=== PATIENT | male | born 1980 | race Caucasian/White ===

== ENCOUNTER 2016-04-18 16:16 | Emergency (ER) | payer MEDICAID, SELFPAY ==
[~2016-04-18 16:16] MED LIST: Lidocaine 1% 20 ML MDV INFILT ONE
[2016-04-18 17:44] VITALS: BP 105/61
[2016-04-18] MEDS ORDERED: cefTRIAXone 1,000 MG VIAL IM ONE (18:16)
[2016-04-18] MEDS ORDERED: cefTRIAXone 1 GM Vial IM ONE (18:26)
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
== END 2016-04-18 18:40 | disposition home or self-care (01) ==
LOC: FB.ED 16:16
DX: S51.812A Laceration without foreign body of left forearm, initial encounter (principal); W45.8XXA Other foreign body or object entering through skin, initial encounter; Z88.6 Allergy status to analgesic agent; Z88.1 Allergy status to other antibiotic agents; Z88.8 Allergy status to other drugs, medicaments and biological substances; I12.0 Hypertensive chronic kidney disease with stage 5 chronic kidney disease or end stage renal disease; N18.6 End stage renal disease; F32.9 Major depressive disorder, single episode, unspecified; F10.10 Alcohol abuse, uncomplicated
CPT/HCPCS: 12002; 96372; 99283; A4217; J0696; 12001

== ENCOUNTER 2016-08-01 12:50 | Emergency (ER) | payer MEDICAID ==
[2016-08-01] MEDS ORDERED: methylPREDNISolone Sodium Succinate 125 MG/2 ML SDV IVPUSH ONE (13:12)
[2016-08-01] MEDS ORDERED: diphenhydrAMINE 50 MG/ML SDV IVPUSH ONE (13:13)
[2016-08-01] MEDS ORDERED: Famotidine 20 MG/2 ML SDV IVPUSH ONE (13:13)
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
[2016-08-01 14:31] VITALS: BP 124/72
== END 2016-08-01 14:15 | disposition home or self-care (01) ==
LOC: FB.ED 12:50
DX: T78.40XA Allergy, unspecified, initial encounter (principal)
CPT/HCPCS: 96374; 96375; 99282; J1200; J2930; S0028

== ENCOUNTER 2018-11-07 08:29 | Emergency (ER) | payer MEDICAID ==
[2018-11-07] MEDS ORDERED: Ketorolac 60 MG/2 ML SDV IM ONE (08:52)
[2018-11-07 08:55] VITALS: BP 149/97; PULSE 103
--- NOTE | 2018-11-07 08:57 | EDM.PDOC ---
ED HPI GENERAL MEDICAL PROBLEM - General Chief Complaint: Back Pain or Injury Stated Complaint: BACK PAIN Time Seen by Provider: 11/07/18 08:29 Source of Information: Reports: Patient History Limitations: Reports: No Limitations - History of Present Illness INITIAL COMMENTS - FREE TEXT/NARRATIVE: 38 y.o.w.m came to the ed one day after he injured his lower back while changing the oil on his car. He denied stool or urine incontinence, denied pain is shooting down his legs. No N/V/D no CP no SOB or any other acute med issues. BP 149/97 Pulse ox 97% on RA RR 18 Pulse 103 Temp 36.9 Onset Date: 11/06/18 Onset Time: 17:00 Duration: Hour(s): Location: Reports: Back Quality: Reports: Ache, Dull, Same as Previous Episode Severity: Moderate Improves with: Reports: Medication, Rest Worsens with: Reports: Movement Context: Reports: Trauma (fell on his back yesterday while changing the oil on his car) Associated Symptoms: Reports: No Other Symptoms - Related Data Allergies Allergy/AdvReac Type Severity Reaction Status Date / Time cat dander Allergy Cannot Verified 11/07/18 08:52 Remember Home Meds: Home Meds Disulfiram 500 mg PO DAILY #30 tablet 07/02/15 [Rx] buPROPion HCl [Wellbutrin SR] 300 mg PO DAILY #60 tablet.er 07/02/15 [Rx] Acetaminophen/HYDROcodone [Pray 325-5 MG] 1 tab PO Q4H PRN #4 tab 11/07/18 [Rx] Cyclobenzaprine [Flexeril] 10 mg PO BID PRN 11/07/18 [History] Testosterone Cypionate 200 mg IM Q30D 11/07/18 [History] Past Medical History - Past Health History Medical/Surgical History: Denies Medical/Surgical History Cardiovascular History: Reports: Arrhythmia, Hypertension Respiratory History: Reports: Asthma Gastrointestinal History: Reports: Gastritis, GI Bleed Genitourinary History: Reports: Dialysis, Renal Disease Other Genitourinary History: On dialysis x 30 days- was in renal failure after drank antifreeze. Is off dialysis now. Musculoskeletal History: Reports: Fracture Other Musculoskeletal History: fx R hand Psychiatric History: Reports: Addiction, Depression, Psych Hospitalization(s) Other Psychiatric History: has been in ETOH tx x 7. Seeing counselor now for ETOH abuse & depression. Saw counselor last Th. Other Endocrine/Metabolic History: does not remember Other Hematologic History: unable3 Other Dermatologic History: unable to respond - Past Surgical History GI Surgical History: Reports: Colonoscopy Social & Family History - Family History Family Medical History: Unobtainable - Caffeine Use Caffeine Use: Reports: Soda - Living Situation & Occupation Living situation: Reports: Single, with Significant Other Occupation: Disabled ED ROS GENERAL - Review of Systems Review Of Systems: See Below Constitutional: Reports: No Symptoms HEENT: Reports: No Symptoms Respiratory: Reports: No Symptoms Cardiovascular: Reports: No Symptoms Endocrine: Reports: No Symptoms GI/Abdominal: Reports: No Symptoms : Reports: No Symptoms Musculoskeletal: Reports: Back Pain Skin: Reports: No Symptoms Neurological: Reports: No Symptoms Psychiatric: Reports: No Symptoms Hematologic/Lymphatic: Reports: No Symptoms Immunologic: Reports: No Symptoms ED EXAM,LOWER BACK PAIN/INJURY - Physical Exam Exam: See Below Exam Limited By: No Limitations General Appearance: Alert, WD/WN, Mild Distress, Moderate Distress Eye Exam: Bilateral Eye: Normal Inspection Ears: Normal External Exam Nose: Normal Inspection, Normal Mucosa Throat/Mouth: Normal Lips, Normal Teeth, Normal Voice, No Airway Compromise Head: Atraumatic, Normocephalic Neck: Normal Inspection, Supple, Non-Tender, Full Range of Motion Respiratory/Chest: No Respiratory Distress, Lungs Clear, Normal Breath Sounds Cardiovascular: Normal Peripheral Pulses, Regular Rate, Rhythm, No Edema, No Gallop GI/Abdominal: Normal Bowel Sounds, Soft, Non-Tender, No Organomegaly (Male) Exam: Deferred Rectal (Males) Exam: Deferred Back Exam: Normal Inspection, Full Range of Motion, Vertebral Tenderness Extremities: Normal Inspection, Normal Range of Motion Neurological: Alert, Normal Mood/Affect, Normal Dorsiflexion, CN II-XII Intact, Normal Gait, Oriented x 3 Psychiatric: Normal Affect, Normal Mood Skin Exam: Warm, Dry, Intact, Normal Color, No Rash Lymphatic: No Adenopathy Course - Vital Signs Text/Narrative:: 38 y.o.w.m came to the ed one day after he injured his lower back while changing the oil on his car. He denied stool or urine incontinence, denied pain is shooting down his legs. No N/V/D no CP no SOB or any other acute med issues. BP 149/97 Pulse ox 97% on RA RR 18 Pulse 103 Temp 36.9 PE: WNWD muscular 38 y.o.w.m with low back pain. Bilat straight leg rasing 20 degree. Imaging: Not indicated Impression: Low back sprain Tx: Toradol, ICE Reexam: Improved 20% Plan: D/C with instructions Last Recorded V/S: Last Vital Signs Temp 36.8 C 11/07/18 08:29 Pulse 103 H 11/07/18 08:29 Resp 18 11/07/18 08:29 BP 149/97 H 11/07/18 08:29 Pulse Ox 97 11/07/18 08:29 - Orders/Labs/Meds Orders: Active Orders 24 hr Category Date Time Status Cooling Warming Measures [RC] ASDIRECTED Care 11/07/18 08:53 Active Ice Bag [Ice Therapy] [OM.PC] Routine Oth 11/07/18 08:53 Ordered Meds: Medications Discontinued Medications Generic Name Dose Route Start Last Admin Trade Name Freq PRN Reason Stop Dose Admin Ketorolac Tromethamine 60 mg 11/07/18 08:52 11/07/18 09:00 Toradol IM 11/07/18 08:53 60 mg ONETIME ONE Administration Departure - Departure Time of Disposition: 09:36 Disposition: Home, Self-Care 01 Condition: Good Clinical Impression: Low back strain Qualifiers: Encounter type: initial encounter Qualified Code(s): S39.012A - Strain of muscle, fascia and tendon of lower back, initial encounter - Discharge Information Prescriptions: Acetaminophen/HYDROcodone [Pray 325-5 MG] 1 tab PO Q4H PRN #4 tab PRN Reason: for severe pain only Instructions: Chronic Back Pain, [id number] Referrals: Jamal Fulton MD [Primary Care Provider] - Forms: ED Department Discharge Additional Instructions: Please apply Ice to the lower back, Motrin with food for mod pain, Pray for severe pain only, please f/u, come back if your symptoms get worse acutely. - My Orders Last 24 Hours: My Active Orders 11/07/18 08:53 Cooling Warming Measures [RC] ASDIRECTED Ice Bag [Ice Therapy] [OM.PC] Routine - Assessment/Plan Last 24 Hours: My Active Orders 11/07/18 08:53 Cooling Warming Measures [RC] ASDIRECTED Ice Bag [Ice Therapy] [OM.PC] Routine
== END 2018-11-07 09:45 | disposition home or self-care (01) ==
LOC: FB.ED 08:29
DX: S39.012A Strain of muscle, fascia and tendon of lower back, initial encounter (principal); F32.9 Major depressive disorder, single episode, unspecified; I10 Essential (primary) hypertension; Z91.048 Other nonmedicinal substance allergy status; X58.XXXA Exposure to other specified factors, initial encounter
CPT/HCPCS: 96372; 99282; J1885

== ENCOUNTER 2020-03-20 15:41 | Emergency (ER) | payer MEDICAID ==
[2020-03-20] MEDS ORDERED: Sodium Chloride 0.9% 10 ML Syringe FLUSH PRN (15:58)
[2020-03-20] MEDS ORDERED: Ketorolac 30 MG/ML SDV IVPUSH STA (16:03)
[2020-03-20] MEDS ORDERED: Acetaminophen 500 MG Tab PO STA (16:03)
[2020-03-20] MEDS ORDERED: Ondansetron 4 MG/2 ML SDV IVPUSH STA (16:03)
[2020-03-20] MEDS ORDERED: Thiamine 100 MG in Sodium Chloride 0.9% 100 ML IV STA (16:04)
[2020-03-20] MEDS ORDERED: Sodium Chloride 0.9% 1,000 ML IV SCH (16:15)
[2020-03-20] MEDS ORDERED: cefTRIAXone 1 GM in Sodium Chloride 0.9% 50 ML IV STA (17:43)
[2020-03-20] MEDS ORDERED: Sulfamethoxazole/Trimethoprim 800-160 MG Tab PO STA (17:45)
[2020-03-20 17:46] VITALS: BP 122/63
--- NOTE | 2020-03-20 17:55 | EDM.PDOC ---
ED HPI GENERAL MEDICAL PROBLEM - General Chief Complaint: Lower Extremity Injury/Pain Time Seen by Provider: 03/20/20 15:45 Source of Information: Reports: Patient History Limitations: Reports: No Limitations - History of Present Illness INITIAL COMMENTS - FREE TEXT/NARRATIVE: Patient presented to the ED because fever, left leg pain, nausea but no vomiting. He drink alcohol regularly and shoots meth and take ecstasy. He denies any chest pain, dyspnea. Right Lower Leg Pain Score (Numeric/FACES): 10 - Related Data Allergies Allergy/AdvReac Type Severity Reaction Status Date / Time cat dander Allergy Mild Cannot Verified 03/20/20 16:18 Remember Home Meds: Home Meds Disulfiram 500 mg PO DAILY #30 tablet 07/02/15 [Rx] buPROPion HCL [Wellbutrin SR] 300 mg PO DAILY #60 tablet.er 07/02/15 [Rx] Acetaminophen/HYDROcodone [Hibbs 325-5 MG] 1 tab PO Q4H PRN #4 tab 11/07/18 [Rx] Cyclobenzaprine [Flexeril] 10 mg PO BID PRN 11/07/18 [History] Testosterone Cypionate 200 mg IM Q30D 11/07/18 [History] Sulfamethoxazole/Trimethoprim [Bactrim Ds Tablet] 1 each PO BID #20 tablet 03/20/20 [Rx] cephALEXin [Keflex] 500 mg PO Q8H #30 cap 03/20/20 [Rx] Past Medical History - Past Health History Medical/Surgical History: Denies Medical/Surgical History Cardiovascular History: Reports: Arrhythmia, Hypertension Other Cardiovascular History: Tachycardia Respiratory History: Reports: Asthma Gastrointestinal History: Reports: Gastritis, GI Bleed Genitourinary History: Reports: Dialysis, Renal Disease Other Genitourinary History: On dialysis x 30 days- was in renal failure after drank antifreeze. Is off dialysis now. Musculoskeletal History: Reports: Fracture Other Musculoskeletal History: fx R hand Psychiatric History: Reports: Addiction, Depression, Psych Hospitalization(s) Other Psychiatric History: has been in ETOH tx x 7. Seeing counselor now for ETOH abuse & depression. Saw counselor last Th. Other Endocrine/Metabolic History: does not remember Other Hematologic History: unable3 Other Dermatologic History: unable to respond - Infectious Disease History Infectious Disease History: Reports: Chicken Pox - Past Surgical History GI Surgical History: Reports: Colonoscopy Other GI Surgeries/Procedures: unable to respond Other Endocrine Surgeries/Procedures: unable to respond Social & Family History - Family History Family Medical History: No Pertinent Family History - Caffeine Use Caffeine Use: Reports: None - Recreational Drug Use Recreational Drug Use: Yes Drug Use in Last 12 Months: Yes Recreational Drug Type: Reports: Amphetamines (Speed) - Living Situation & Occupation Living situation: Reports: Single, with Significant Other Occupation: Disabled Review of Systems - Review of Systems Review Of Systems: See Below Constitutional: Reports: No Symptoms Eyes: Reports: No Symptoms Ears: Reports: No Symptoms Nose: Reports: No Symptoms Mouth/Throat: Reports: No Symptoms Respiratory: Reports: No Symptoms Cardiovascular: Reports: No Symptoms GI/Abdominal: Reports: No Symptoms Genitourinary: Reports: No Symptoms Musculoskeletal: Reports: No Symptoms Skin: Reports: Erythema Neurological: Reports: No Symptoms Psychiatric: Reports: No Symptoms ED EXAM, GENERAL - Physical Exam Exam: See Below Exam Limited By: No Limitations General Appearance: Alert, No Apparent Distress Nose: Normal Inspection, Normal Mucosa Throat/Mouth: Normal Inspection, Normal Lips Head: Atraumatic, Normocephalic Neck: Normal Inspection, Supple, Non-Tender, Full Range of Motion Respiratory/Chest: No Respiratory Distress, Lungs Clear, Normal Breath Sounds Cardiovascular: Normal Peripheral Pulses, No Edema, No Gallop, Tachycardia GI/Abdominal: Normal Bowel Sounds, Soft, Non-Tender, No Organomegaly Back Exam: Normal Inspection, Full Range of Motion Extremities: Normal Inspection, Normal Range of Motion, Non-Tender Neurological: Alert, Oriented, CN II-XII Intact Psychiatric: Normal Affect Skin Exam: Erythema Course - Vital Signs Text/Narrative:: Labs/EKG/CXR was discussed with patient and verbalized full understanding NS 1 L bolus Toradol 30 mg IV x1 Tylenol 1000 mg po x1 Zofran 4 mg IV Rocephin 1gm IV Bactrim DS 1 po x1 Last Recorded V/S: Last Vital Signs Temp 37.3 C 03/20/20 17:40 Pulse 109 H 03/20/20 17:40 Resp 22 H 03/20/20 17:40 BP 122/63 03/20/20 17:40 Pulse Ox 97 03/20/20 17:40 - Orders/Labs/Meds Orders: Active Orders 24 hr Category Date Time Status EKG Documentation Completion [RC] ASDIRECTED Care 03/20/20 16:01 Active Chest 1V Frontal [CR] Stat Exams 03/20/20 16:00 Taken CULTURE BLOOD [BC] Urgent Lab 03/20/20 15:50 Received CULTURE BLOOD [BC] Urgent Lab 03/20/20 16:00 Received LACTIC ACID [CHEM] Stat Lab 03/20/20 15:50 Received Sodium Chloride 0.9% [Normal Saline] 1,000 ml Med 03/20/20 16:15 Active IV ASDIRECTED Sodium Chloride 0.9% [Saline Flush] Med 03/20/20 15:58 Active 10 ml FLUSH ASDIRECTED PRN Blood Culture x2 Reflex Set [OM.PC] Urgent Oth 03/20/20 16:00 Ordered Isolation [COMM] Routine Oth 03/20/20 15:59 Ordered Saline Lock Insert [OM.PC] Routine Oth 03/20/20 15:58 Ordered EKG 12 Lead [EK] Routine Ther 03/20/20 16:00 Ordered Medication Orders Sodium Chloride (Normal Saline) 1,000 mls @ 999 mls/hr IV ASDIRECTED ALFREDO Last Admin: 03/20/20 16:00 Dose: 999 mls/hr Documented by: JENNI Sodium Chloride (Saline Flush) 10 ml FLUSH ASDIRECTED PRN PRN Reason: Keep Vein Open Labs: Laboratory Tests 03/20/20 03/20/20 03/20/20 Range/Units 15:50 15:50 15:50 WBC 17.1 H (3.2-10.1) x10-3/uL RBC 5.10 (3.90-5.90) x10(6)uL Hgb 15.3 (12.9-17.7) g/dL Hct 46.5 (38.3-50.1) % MCV 91.3 (80.8-98.7) fL MCH 30.0 (27.0-33.3) pg MCHC 32.8 (28.7-35.3) g/dL RDW 12.9 (12.4-15.0) % Plt Count 242 (117-477) x10(3)uL MPV 8.7 (6.7-11.0) fL Add Manual Diff Yes Neutrophils % (Manual) 80 (46-82) % Band Neutrophils % 4 (0-6) % Lymphocytes % (Manual) 11 L (13-37) % Monocytes % (Manual) 5 (4-12) % Sodium 137 (135-145) mmol/L Potassium 4.0 (3.5-5.3) mmol/L Chloride 98 L (100-110) mmol/L Carbon Dioxide 29 (21-32) mmol/L BUN 22 H (7-18) mg/dL Creatinine 1.2 (0.70-1.30) mg/dL Est Cr Clr Drug Dosing 78.38 mL/min Estimated GFR (MDRD) > 60 (>60) BUN/Creatinine Ratio 18.3 (9-20) Glucose 116 (80-116) mg/dL Calcium 8.9 (8.6-10.2) mg/dL Total Bilirubin 1.1 (0.1-1.3) mg/dL AST 18 (5-25) IU/L ALT 34 (12-36) U/L Alkaline Phosphatase 39 L (56-112) IU/L Troponin I (4.0-60.3) pg/mL Total Protein 7.2 (6.0-8.0) g/dL Albumin 3.9 (3.5-5.2) g/dL Globulin 3.3 g/dL Albumin/Globulin Ratio 1.2 Urine Color (YELLOW) Urine Appearance (CLEAR) Urine pH (5.0-6.5) Ur Specific [place] (1.010-1.025) Urine Protein (NEGATIVE) mg/dL Urine Glucose (UA) (NORMAL) mg/dL Urine Ketones (NEGATIVE) mg/dL Urine Occult Blood (NEGATIVE) Urine Nitrite (NEGATIVE) Urine Bilirubin (NEGATIVE) Urine Urobilinogen (NEGATIVE) mg/dL Ur Leukocyte Esterase (NEGATIVE) Urine RBC (0-5) Urine WBC (0-5) Ur Squamous Epith Cells (NS,R,O) Urine Bacteria (NS) Urine Opiates Screen (NEGATIVE) Ur Oxycodone Screen (NEGATIVE) Ur Propoxyphene Screen (NEGATIVE) Ur Barbituates Screen (NEGATIVE) Ur Tricyclics Screen (NEGATIVE) Ur Phencyclidine Scrn (NEGATIVE) Ur Amphetamine Screen (NEGATIVE) Urine MDMA Screen (NEGATIVE) U Benzodiazepines Scrn (NEGATIVE) U Cocaine Metab Screen (NEGATIVE) U Marijuana (THC) Screen (NEGATIVE) Ethyl Alcohol < 0.03 (<0.03) % SARS-CoV-2 RNA (NEL) (NEGATIVE) 03/20/20 03/20/20 03/20/20 Range/Units 15:50 16:45 17:20 WBC (3.2-10.1) x10-3/uL RBC (3.90-5.90) x10(6)uL Hgb (12.9-17.7) g/dL Hct (38.3-50.1) % MCV (80.8-98.7) fL MCH (27.0-33.3) pg MCHC (28.7-35.3) g/dL RDW (12.4-15.0) % Plt Count (117-477) x10(3)uL MPV (6.7-11.0) fL Add Manual Diff Neutrophils % (Manual) (46-82) % Band Neutrophils % (0-6) % Lymphocytes % (Manual) (13-37) % Monocytes % (Manual) (4-12) % Sodium (135-145) mmol/L Potassium (3.5-5.3) mmol/L Chloride (100-110) mmol/L Carbon Dioxide (21-32) mmol/L BUN (7-18) mg/dL Creatinine (0.70-1.30) mg/dL Est Cr Clr Drug Dosing mL/min Estimated GFR (MDRD) (>60) BUN/Creatinine Ratio (9-20) Glucose (80-116) mg/dL Calcium (8.6-10.2) mg/dL Total Bilirubin (0.1-1.3) mg/dL AST (5-25) IU/L ALT (12-36) U/L Alkaline Phosphatase (56-112) IU/L Troponin I < 4.0 L (4.0-60.3) pg/mL Total Protein (6.0-8.0) g/dL Albumin (3.5-5.2) g/dL Globulin g/dL Albumin/Globulin Ratio Urine Color Yellow (YELLOW) Urine Appearance Clear (CLEAR) Urine pH 6.0 (5.0-6.5) Ur Specific [place] 1.020 (1.010-1.025) Urine Protein Negative (NEGATIVE) mg/dL Urine Glucose (UA) Normal (NORMAL) mg/dL Urine Ketones Negative (NEGATIVE) mg/dL Urine Occult Blood Negative (NEGATIVE) Urine Nitrite Negative (NEGATIVE) Urine Bilirubin Negative (NEGATIVE) Urine Urobilinogen Normal (NEGATIVE) mg/dL Ur Leukocyte Esterase Negative (NEGATIVE) Urine RBC 0-5 (0-5) Urine WBC 0-5 (0-5) Ur Squamous Epith Cells Occasional (NS,R,O) Urine Bacteria Rare H (NS) Urine Opiates Screen (NEGATIVE) Ur Oxycodone Screen (NEGATIVE) Ur Propoxyphene Screen (NEGATIVE) Ur Barbituates Screen (NEGATIVE) Ur Tricyclics Screen (NEGATIVE) Ur Phencyclidine Scrn (NEGATIVE) Ur Amphetamine Screen (NEGATIVE) Urine MDMA Screen (NEGATIVE) U Benzodiazepines Scrn (NEGATIVE) U Cocaine Metab Screen (NEGATIVE) U Marijuana (THC) Screen (NEGATIVE) Ethyl Alcohol (<0.03) % SARS-CoV-2 RNA (NEL) Negative (NEGATIVE) 03/20/20 Range/Units 17:20 WBC (3.2-10.1) x10-3/uL RBC (3.90-5.90) x10(6)uL Hgb (12.9-17.7) g/dL Hct (38.3-50.1) % MCV (80.8-98.7) fL MCH (27.0-33.3) pg MCHC (28.7-35.3) g/dL RDW (12.4-15.0) % Plt Count (117-477) x10(3)uL MPV (6.7-11.0) fL Add Manual Diff Neutrophils % (Manual) (46-82) % Band Neutrophils % (0-6) % Lymphocytes % (Manual) (13-37) % Monocytes % (Manual) (4-12) % Sodium (135-145) mmol/L Potassium (3.5-5.3) mmol/L Chloride (100-110) mmol/L Carbon Dioxide (21-32) mmol/L BUN (7-18) mg/dL Creatinine (0.70-1.30) mg/dL Est Cr Clr Drug Dosing mL/min Estimated GFR (MDRD) (>60) BUN/Creatinine Ratio (9-20) Glucose (80-116) mg/dL Calcium (8.6-10.2) mg/dL Total Bilirubin (0.1-1.3) mg/dL AST (5-25) IU/L ALT (12-36) U/L Alkaline Phosphatase (56-112) IU/L Troponin I (4.0-60.3) pg/mL Total Protein (6.0-8.0) g/dL Albumin (3.5-5.2) g/dL Globulin g/dL Albumin/Globulin Ratio Urine Color (YELLOW) Urine Appearance (CLEAR) Urine pH (5.0-6.5) Ur Specific [place] (1.010-1.025) Urine Protein (NEGATIVE) mg/dL Urine Glucose (UA) (NORMAL) mg/dL Urine Ketones (NEGATIVE) mg/dL Urine Occult Blood (NEGATIVE) Urine Nitrite (NEGATIVE) Urine Bilirubin (NEGATIVE) Urine Urobilinogen (NEGATIVE) mg/dL Ur Leukocyte Esterase (NEGATIVE) Urine RBC (0-5) Urine WBC (0-5) Ur Squamous Epith Cells (NS,R,O) Urine Bacteria (NS) Urine Opiates Screen Negative (NEGATIVE) Ur Oxycodone Screen Negative (NEGATIVE) Ur Propoxyphene Screen Negative (NEGATIVE) Ur Barbituates Screen Negative (NEGATIVE) Ur Tricyclics Screen Negative (NEGATIVE) Ur Phencyclidine Scrn Negative (NEGATIVE) Ur Amphetamine Screen Positive H (NEGATIVE) Urine MDMA Screen Positive H (NEGATIVE) U Benzodiazepines Scrn Negative (NEGATIVE) U Cocaine Metab Screen Negative (NEGATIVE) U Marijuana (THC) Screen Negative (NEGATIVE) Ethyl Alcohol (<0.03) % SARS-CoV-2 RNA (NEL) (NEGATIVE) Meds: Medications Generic Name Dose Route Start Last Admin Trade Name Freq PRN Reason Stop Dose Admin Sodium Chloride 1,000 mls @ 999 mls/hr 03/20/20 16:15 03/20/20 16:00 Normal Saline IV 999 mls/hr ASDIRECTED ALFREDO Administration Sodium Chloride 10 ml 03/20/20 15:58 Saline Flush FLUSH ASDIRECTED PRN Keep Vein Open Discontinued Medications Generic Name Dose Route Start Last Admin Trade Name Freq PRN Reason Stop Dose Admin Acetaminophen 1,000 mg 03/20/20 16:03 03/20/20 16:13 Tylenol Extra Strength PO 03/20/20 16:04 1,000 mg NOW STA Administration Thiamine HCl 100 mg/ Sodium 101 mls @ 202 mls/hr 03/20/20 16:04 03/20/20 16:22 Chloride IV 03/20/20 16:05 202 mls/hr NOW STA Administration Ceftriaxone Sodium 1 gm/ 50 mls @ 200 mls/hr 03/20/20 17:43 03/20/20 17:49 Sodium Chloride IV 03/20/20 17:57 200 mls/hr NOW STA Administration Ketorolac Tromethamine 30 mg 03/20/20 16:03 03/20/20 16:14 Toradol IVPUSH 03/20/20 16:04 30 mg NOW STA Administration Ondansetron HCl 4 mg 03/20/20 16:03 03/20/20 16:19 Zofran IVPUSH 03/20/20 16:04 4 mg NOW STA Administration Trimethoprim/Sulfamethoxazole 1 tab 03/20/20 17:45 03/20/20 18:01 Septra Ds PO 03/20/20 17:46 1 tab NOW STA Administration Departure - Departure Time of Disposition: 18:00 Disposition: Home, Self-Care 01 Condition: Good Clinical Impression: Alcoholism, Polysubstance (excluding opioids) dependence, Cellulitis, Dehydration - Discharge Information Prescriptions: Sulfamethoxazole/Trimethoprim [Bactrim Ds Tablet] 1 each PO BID #20 tablet cephALEXin [Keflex] 500 mg PO Q8H #30 cap Instructions: Cellulitis, Adult, Alcohol Abuse and Dependence Information, Adult, Substance Use Disorder, Dehydration, Adult, [id number] Forms: ED Department Discharge Additional Instructions: please read discharge instructions on alcohol abuse, polysubstance abuse, cellulitis, dehydration increase oral fluids at least 2-3 liter a day quit using street drugs and alcohol bactrim DS twice daily for 10 days Keflex 500 mg ever 8 hours for 10 days tylenol 1000 mg every 8 hours as needed for pain/fever return to the ED tomorrow for repeat labs and IV antibiotic treatment Sepsis Event Note (ED) - Focused Exam Vital Signs: Vital Signs Temp Pulse Resp BP Pulse Ox 03/20/20 17:40 37.3 C 109 H 22 H 122/63 97 03/20/20 16:44 38.7 C H 116 H 23 H 124/63 96 03/20/20 15:41 37.9 C 101 H 18 157/81 H 100 - My Orders Last 24 Hours: My Active Orders 03/20/20 15:50 CULTURE BLOOD [BC] Urgent LACTIC ACID [CHEM] Stat 03/20/20 15:58 Sodium Chloride 0.9% [Saline Flush] 10 ml FLUSH ASDIRECTED PRN Saline Lock Insert [OM.PC] Routine 03/20/20 15:59 Isolation [COMM] Routine 03/20/20 16:00 Chest 1V Frontal [CR] Stat CULTURE BLOOD [BC] Urgent Blood Culture x2 Reflex Set [OM.PC] Urgent EKG 12 Lead [EK] Routine 03/20/20 16:01 EKG Documentation Completion [RC] ASDIRECTED 03/20/20 16:15 Sodium Chloride 0.9% [Normal Saline] 1,000 ml IV ASDIRECTED - Assessment/Plan Last 24 Hours: My Active Orders 03/20/20 15:50 CULTURE BLOOD [BC] Urgent LACTIC ACID [CHEM] Stat 03/20/20 15:58 Sodium Chloride 0.9% [Saline Flush] 10 ml FLUSH ASDIRECTED PRN Saline Lock Insert [OM.PC] Routine 03/20/20 15:59 Isolation [COMM] Routine 03/20/20 16:00 Chest 1V Frontal [CR] Stat CULTURE BLOOD [BC] Urgent Blood Culture x2 Reflex Set [OM.PC] Urgent EKG 12 Lead [EK] Routine 03/20/20 16:01 EKG Documentation Completion [RC] ASDIRECTED 03/20/20 16:15 Sodium Chloride 0.9% [Normal Saline] 1,000 ml IV ASDIRECTED
[2020-03-20 18:26] VITALS: PULSE 108
--- NOTE | 2020-03-20 20:08 | CR ---
INDICATION: Fever. Cough. CHEST, ONE VIEW: Portable AP upright view of the chest was obtained 03/20/20 - no comparisons. The heart and mediastinum are unremarkable. Overlying EKG leads were noted. Minimal dextroconcave scoliosis is noted at the lower middle thoracic spine. Somewhat heavy markings are noted at the left lung base, which may be fibrotic in nature, but make it difficult to exclude minimal patchy bronchopneumonia. No gross consolidating pneumonia or effusion was seen. IMPRESSION: 1. No definite acute process, but difficult to exclude patchy bronchopneumonia at the left lung base. 2. Mild scoliosis. MTDD
== END 2020-03-20 18:50 | disposition home or self-care (01) ==
LOC: FB.ED 15:41
DX: F10.20 Alcohol dependence, uncomplicated (principal); L03.115 Cellulitis of right lower limb; F19.20 Other psychoactive substance dependence, uncomplicated; E86.0 Dehydration; I10 Essential (primary) hypertension; J45.909 Unspecified asthma, uncomplicated; Z91.048 Other nonmedicinal substance allergy status; Z79.899 Other long term (current) drug therapy; Z20.822 Contact with and (suspected) exposure to COVID-19
CPT/HCPCS: 36415; 71045; 80053; 80305; 80307; 81001; 83605; 84484; 85025; 87040; 87635; 87804; 93005; 96365; 96367; 96375; 99284; A9270; J0696; J1885; J2405; J3411; J7030; U0002

== ENCOUNTER 2020-03-25 05:14 | Emergency (ER) | payer MEDICAID | END 2020-03-25 05:45 | disposition left against medical advice (07) | LOC: FB.ED 05:14 | DX: Z53.21 Procedure and treatment not carried out due to patient leaving prior to being seen by health care provider (principal) ==

== ENCOUNTER 2023-03-20 19:00 | Emergency (ER) | payer MEDICAID ==
[2023-03-20 19:14] VITALS: BP 178/90; PULSE 112
== END 2023-03-20 19:21 | disposition home or self-care (01) ==
LOC: FB.ED 19:00
DX: F10.129 Alcohol abuse with intoxication, unspecified (principal); F32.A Depression, unspecified; I10 Essential (primary) hypertension; J45.909 Unspecified asthma, uncomplicated; Z79.899 Other long term (current) drug therapy; Z91.048 Other nonmedicinal substance allergy status; Y90.9 Presence of alcohol in blood, level not specified
CPT/HCPCS: 99284

== ENCOUNTER 2023-09-29 02:49 | Emergency (ER) | payer SELFPAY ==
[2023-09-29] MEDS ORDERED: Sodium Chloride 0.9% 10 ML Syringe FLUSH PRN (03:13)
[2023-09-29 03:37] LABS: BLOOD UREA NITROGEN,BUN 8 mg/dL (7-18); BUN/CREATININE RATIO 6.7 (9-20); CALCIUM 7.8 mg/dL (8.6-10.2); CARBON DIOXIDE,CO2 28 mmol/L (21-32); CHLORIDE,CL 99 mmol/L (100-110); CREATININE 1.2 mg/dL (0.70-1.30); ESTIMATED GFR 76 mL/min (>60); GLUCOSE RANDOM 175 mg/dL (80-116); POTASSIUM,K 3.5 mmol/L (3.5-5.3); SODIUM,NA 139 mmol/L (135-145)
[2023-09-29 03:44] LABS: BASOPHILS ABSOLUTE AUTO 0.1 x10-3/uL (0.0-0.3); BASOPHILS PERCENT AUTO 1.4 % (0.3-3.8); EOSINOPHILS PERCENT AUTO 0.5 % (0.1-6.8); HEMATOCRIT 42.8 % (38.3-50.1); HEMOGLOBIN 14.5 g/dL (12.9-17.7); LYMPHOCYTES ABSOLUTE AUTO 1.1 x10-3/uL (0.5-4.5); LYMPHOCYTES PERCENT AUTO 16.2 % (15.8-45.3); MEAN CORPUSCULAR HEMOGLOBIN 31.3 pg (27.0-33.3); MEAN CORPUSCULAR HGB CONC 33.9 g/dL (28.7-35.3); MEAN CORPUSCULAR VOLUME 92.3 fL (80.8-98.7); MONOCYTES ABSOLUTE AUTO 0.7 x10-3/uL (0.0-1.2); MONOCYTES PERCENT AUTO 9.7 % (5.5-15.2); NEUTROPHILS PERCENT AUTO 72.2 % (40.3-71.8); PLATELET COUNT,PLT 241 x10(3)uL (117-477); RED BLOOD CELL COUNT 4.64 x10(6)uL (3.90-5.90); RED CELL DISTRIBUTION WIDTH 14.9 % (12.4-15.0); WHITE BLOOD CELL COUNT,WBC 6.9 x10-3/uL (3.2-10.1)
[2023-09-29 03:51] LABS: A/G RATIO 1.1; ALANINE AMINOTRANSFERASE,ALT 118 U/L (12-36); ALBUMIN 3.2 g/dL (3.5-5.2); ALKALINE PHOSPHATASE 47 IU/L (56-112); ASPARTATE AMNIOTRANSFERASE,AST 107 IU/L (5-25); BILIRUBIN TOTAL 0.8 mg/dL (0.1-1.3); MAGNESIUM 1.6 mg/dL (1.8-2.5)
[2023-09-29 03:54] LABS: CREATINE KINASE,CK 300 IU/L (60-160)
[2023-09-29 03:55] LABS: LACTIC ACID 4.8 mmol/L (0.4-2.0)
[2023-09-29] MEDS: Sodium Chloride 0.9% 1,000 ML IV ONE (04:19)
[2023-09-29] MEDS: Thiamine 100 MG in Sodium Chloride 0.9% 50 ML IV ONE (04:21)
[2023-09-29] MEDS: Calcium Gluconate 10% 1 GM/10 ML SDV IVPUSH ONE (04:46)
[2023-09-29] MEDS: Sodium Chloride 0.9% 1,000 ML IV SCH (06:03)
[2023-09-29 06:31] LABS: BLOOD UREA NITROGEN,BUN 7 mg/dL (7-18); BUN/CREATININE RATIO 6.4 (9-20); CALCIUM 7.9 mg/dL (8.6-10.2); CARBON DIOXIDE,CO2 30 mmol/L (21-32); CHLORIDE,CL 105 mmol/L (100-110); CREATININE 1.1 mg/dL (0.70-1.30); EST CRCL DRUG DOSING (CG) 82.47 mL/min; ESTIMATED GFR 85 mL/min (>60); GLUCOSE RANDOM 111 mg/dL (80-116); POTASSIUM,K 3.5 mmol/L (3.5-5.3); SODIUM,NA 143 mmol/L (135-145)
[2023-09-29 06:42] LABS: A/G RATIO 1.1; ALANINE AMINOTRANSFERASE,ALT 137 U/L (12-36); ALKALINE PHOSPHATASE 45 IU/L (56-112); BILIRUBIN TOTAL 0.9 mg/dL (0.1-1.3); CREATINE KINASE,CK 267 IU/L (60-160); PROTEIN TOTAL,TP 5.8 g/dL (6.0-8.0)
[2023-09-29 06:45] LABS: ASPARTATE AMNIOTRANSFERASE,AST 157 IU/L (5-25)
[2023-09-29 11:48] VITALS: BP 160/105; PULSE 101
== END 2023-09-29 11:40 | disposition home or self-care (01) ==
LOC: FB.ED 02:49
DX: F10.929 Alcohol use, unspecified with intoxication, unspecified (principal); E83.51 Hypocalcemia; E83.42 Hypomagnesemia; E87.20 Acidosis, unspecified; I10 Essential (primary) hypertension; Z91.048 Other nonmedicinal substance allergy status; Z79.899 Other long term (current) drug therapy
CPT/HCPCS: 36415; 80053; 80307; 82550; 83605; 83735; 85025; 96361; 96365; 96366; 96368; 96375; 99284; J0612; J3411; J3475; J3490; J7030